=== PATIENT | male | born 1970 | race Caucasian/White ===

== ENCOUNTER 2024-12-03 08:53 | Emergency (ER) | payer BC ==
[~2024-12-03] VITALS: Ht 172.7 cm; Wt 75.0 kg
[2024-12-03 08:57] VITALS: TEMP 36.9; O2SAT 99
[2024-12-03 10:28] VITALS: BP 133/79; PULSE 94; RESP 16
[2024-12-03] MEDS: AMOXICILLIN/POTASSIUM CLAVULANATE 875/125MG TAB PO ONE (10:28)
[2024-12-03] MEDS: TETANUS AND DIPHTHERIA TOX/PF 0.5ML SYR (ADULT) IM ONE (10:28)
[2024-12-03] MEDS: LORAZEPAM 1MG TABLET PO ONE (10:28)
[2024-12-03] MEDS: IBUPROFEN 800MG TABLET PO ONE (10:28)
== END 2024-12-03 11:02 | disposition left against medical advice (07) ==
LOC: ER 08:53
DX: S66.921A Laceration of unspecified muscle, fascia and tendon at wrist and hand level, right hand, initial encounter (principal); G89.11 Acute pain due to trauma; F41.9 Anxiety disorder, unspecified; F32.A Depression, unspecified; X58.XXXA Exposure to other specified factors, initial encounter; Y93.89 Activity, other specified; Y92.89 Other specified places as the place of occurrence of the external cause; Y99.8 Other external cause status
CPT/HCPCS: 90471; 90714; 99284